=== PATIENT | female | born 1985 | race American Indian/Alaskan Native ===

== ENCOUNTER 2018-04-02 10:14 | Emergency (ER) | payer OTHER ==
[2018-04-02 10:19] VITALS: BP 182/95
[2018-04-02 11:33] LABS: Bilirubin,Urine NEG (Negative); Blood,Urine NEG (Negative); Color,Urine Straw (Yellow); Protein,Urine <15 mg/dL mg/dL (Negative); Urobilinogen,Urine < 2.0 mg/dL (<2.0); WBC,Urine < 1.0 /HPF (0.0-6.0)
[2018-04-02 11:48] LABS: HCG Qualitative,Urine Negative (Negative)
[2018-04-02] MEDS ORDERED: NACL 0.9% 1000 ML 1,000 ML IV ONE (12:13)
[2018-04-02] MEDS ORDERED: MORPHINE IV ONE (12:13)
[2018-04-02] MEDS ORDERED: ZOFRAN IV ONE (12:13)
--- NOTE | 2018-04-02 12:17 | Emergency Department Report ---
ED General Adult HPI - General Chief complaint: Abdominal Pain Stated complaint: STOMACH PAIN Time Seen by Provider: 04/02/18 12:01 Source: patient Mode of arrival: Ambulatory Limitations: No Limitations - History of Present Illness Initial comments: Patient presents to emergency department with acute onset of excruciating abdominal pain with nausea and vomiting that started 2 hours ago. Patient not chest pain, shortness breath, headache. -: Sudden Location: abdomen Radiation: non-radiation Severity scale (0 -10): 9 Quality: sharp Consistency: constant Improves with: none Worsens with: none Associated Symptoms: nausea/vomiting Treatments Prior to Arrival: none - Related Data Previous Rx's Medication Instructions Recorded Last Taken Type HYDROcodone/APAP 5-325 [[place] 1 each PO Q6HR PRN #12 tablet 04/02/18 Unknown Rx 5/325] Ondansetron [Zofran Odt] 4 mg PO Q6H PRN #12 tab.rapdis 04/02/18 Unknown Rx Allergies Allergy/AdvReac Type Severity Reaction Status Date / Time latex Allergy Itching Verified 04/02/18 10:17 ED Review of Systems ROS: Stated complaint: STOMACH PAIN Other details as noted in HPI Comment: All other systems reviewed and negative Constitutional: denies: chills, fever Eyes: denies: eye pain, eye discharge, vision change ENT: denies: ear pain, throat pain Respiratory: denies: cough, shortness of breath, wheezing Cardiovascular: denies: chest pain, palpitations Endocrine: no symptoms reported Gastrointestinal: abdominal pain. denies: nausea, diarrhea Genitourinary: denies: urgency, dysuria, discharge Musculoskeletal: denies: back pain, joint swelling, arthralgia Skin: denies: rash, lesions Neurological: denies: headache, weakness, paresthesias Psychiatric: denies: anxiety, depression Hematological/Lymphatic: denies: easy bleeding, easy bruising ED Past Medical Hx - Past Medical History Previous Medical History?: No - Surgical History Past Surgical History?: No - Social History Smoking Status: Never Smoker Substance Use Type: None - Medications Home Medications: Home Medications Medication Instructions Recorded Confirmed Last Taken Type HYDROcodone/APAP 5-325 [[place] 1 each PO Q6HR PRN #12 tablet 04/02/18 Unknown Rx 5/325] Ondansetron [Zofran Odt] 4 mg PO Q6H PRN #12 tab.rapdis 04/02/18 Unknown Rx ED Physical Exam - General Limitations: No Limitations General appearance: alert, in no apparent distress - Head Head exam: Present: atraumatic, normocephalic - Eye Eye exam: Present: normal appearance, PERRL, EOMI - ENT ENT exam: Present: mucous membranes moist - Neck Neck exam: Present: normal inspection - Respiratory Respiratory exam: Present: normal lung sounds bilaterally. Absent: respiratory distress, wheezes, rales - Cardiovascular Cardiovascular Exam: Present: regular rate, normal rhythm. Absent: systolic murmur, diastolic murmur, rubs, gallop - GI/Abdominal GI/Abdominal exam: Present: soft, tenderness (tenderness to palpation right upper quadrant and right lower quadrant), normal bowel sounds. Absent: distended - Extremities Exam Extremities exam: Present: normal inspection - Back Exam Back exam: Present: normal inspection - Neurological Exam Neurological exam: Present: alert, oriented X3, CN II-XII intact. Absent: motor sensory deficit - Psychiatric Psychiatric exam: Present: normal affect, normal mood - Skin Skin exam: Present: warm, dry, intact, normal color. Absent: rash ED Course Vital Signs 04/02/18 04/02/18 04/02/18 10:17 12:16 12:35 Temperature 97.5 F L Pulse Rate 93 H Respiratory 18 16 17 Rate Blood Pressure 182/95 O2 Sat by Pulse 100 Oximetry ED Medical Decision Making - Lab Data Result diagrams: 04/02/18 12:27 04/02/18 12:27 Lab Results 04/02/18 04/02/18 04/02/18 Range/Units 11:17 12:27 12:27 WBC 5.9 (4.5-11.0) K/mm3 RBC 5.32 H (3.65-5.03) M/mm3 Hgb 13.7 (10.1-14.3) gm/dl Hct 43.4 H (30.3-42.9) % MCV 82 (79-97) fl MCH 26 L (28-32) pg MCHC 32 (30-34) % RDW 14.4 (13.2-15.2) % Plt Count 272 (140-440) K/mm3 Lymph % (Auto) 22.3 (13.4-35.0) % [place] % (Auto) 7.0 (0.0-7.3) % Eos % (Auto) 0.7 (0.0-4.3) % Baso % (Auto) 0.8 (0.0-1.8) % Lymph # 1.3 (1.2-5.4) K/mm3 [place] # 0.4 (0.0-0.8) K/mm3 Eos # 0.0 (0.0-0.4) K/mm3 Baso # 0.0 (0.0-0.1) K/mm3 Seg Neutrophils % 69.2 (40.0-70.0) % Seg Neutrophils # 4.1 (1.8-7.7) K/mm3 Sodium 141 (137-145) mmol/L Potassium 4.8 (3.6-5.0) mmol/L Chloride 106.3 (98-107) mmol/L Carbon Dioxide 24 (22-30) mmol/L Anion Gap 16 mmol/L BUN 11 (7-17) mg/dL Creatinine 0.8 (0.7-1.2) mg/dL Estimated GFR > 60 ml/min BUN/Creatinine Ratio 14 % Glucose 81 (65-100) mg/dL Calcium 9.0 (8.4-10.2) mg/dL Total Bilirubin 0.40 (0.1-1.2) mg/dL AST 20 (5-40) units/L ALT 20 (7-56) units/L Alkaline Phosphatase 73 (35-129) units/L Total Protein 6.8 (6.3-8.2) g/dL Albumin 3.8 L (3.9-5) g/dL Albumin/Globulin Ratio 1.3 % Lipase 17 (13-60) units/L Urine Color Straw (Yellow) Urine Turbidity Clear (Clear) Urine pH 6.0 (5.0-7.0) Ur Specific [place] 1.005 (1.003-1.030) Urine Protein <15 mg/dl (Negative) mg/dL Urine Glucose (UA) Neg (Negative) mg/dL Urine Ketones Neg (Negative) mg/dL Urine Blood Neg (Negative) Urine Nitrite Neg (Negative) Urine Bilirubin Neg (Negative) Urine Urobilinogen < 2.0 (<2.0) mg/dL Ur Leukocyte Esterase Neg (Negative) Urine WBC (Auto) < 1.0 (0.0-6.0) /HPF Urine RBC (Auto) 1.0 (0.0-6.0) /HPF U Epithel Cells (Auto) 1.0 (0-13.0) /HPF Urine HCG, Qual Negative (Negative) - Radiology Data Radiology results: report reviewed Critical care attestation.: If time is entered above; I have spent that time in minutes in the direct care of this critically ill patient, excluding procedure time. ED Disposition Clinical Impression: Ovarian cyst, Cholelithiasis Disposition: TO HOME OR SELFCARE Is pt being admited?: No Does the pt Need Aspirin: No Condition: Stable Instructions: Ovarian Cyst (ED), Biliary Colic (ED), Abdominal Pain (ED) Prescriptions: HYDROcodone/APAP 5-325 [[place] 5/325] 1 each PO Q6HR PRN #12 tablet PRN Reason: Pain Ondansetron [Zofran Odt] 4 mg PO Q6H PRN #12 tab.rapdis PRN Reason: Nausea Referrals: CIARA BECK MD [Primary Care Provider] - 3-5 Days Time of Disposition: 15:18
[2018-04-02 12:43] LABS: Basophils % (Auto) 0.8 % (0.0-1.8); Eosinophils % (Auto) 0.7 % (0.0-4.3); Hematocrit 43.4 % (30.3-42.9); Hemoglobin 13.7 gm/dl (10.1-14.3); Lymphocytes # (Auto) 1.3 K/mm3 (1.2-5.4); Lymphocytes % (Auto) 22.3 % (13.4-35.0); Mean Corpuscular HGB Conc 32 % (30-34); Mean Corpuscular Volume 82 fl (79-97); Monocytes # (Auto) 0.4 K/mm3 (0.0-0.8); Platelet Count 272 K/mm3 (140-440); Red Blood Count 5.32 M/mm3 (3.65-5.03); Red Cell Distribution Width 14.4 % (13.2-15.2)
[2018-04-02 13:07] LABS: Alanine Aminotransferase 20 units/L (7-56); Albumin 3.8 g/dL (3.9-5); BUN/Creatinine Ratio 14; Blood Urea Nitrogen 11 mg/dL (7-17); Hemolysis Index 34
--- NOTE | 2018-04-02 13:39 | Cat Scan Report ---
CT ABDOMEN PELVIS WITHOUT CONTRAST: HISTORY: Right lower quadrant abdominal pain. COMPARISON: none. TECHNIQUE: Helical CT in 1.25mm intervals without IV contrast. Sagittal and coronal reconstructions. FINDINGS: Lung bases: Normal. Liver: Normal. Biliary system: Normal. Pancreas: Normal. Spleen: Normal. Kidneys/ureters/bladder: Normal. Adrenal glands: Normal. Aorta: Normal. Intestines: Normal. Appendix: Normal. Pelvic viscera: A 3.3 x 2.4 cm right ovarian cyst is suspected. The uterus and left adnexa are unremarkable. Ascites: None. Adenopathy: None. Musculoskeletal: Normal. IMPRESSION: 3.3 x 2.4 cm right ovarian cyst.
--- NOTE | 2018-04-02 14:15 | Ultrasound Report ---
FINAL REPORT EXAM: US ABDOMEN COMPLETE HISTORY: abdomen pain/ nausea TECHNIQUE: Grayscale and color doppler ultrasound imaging of the right upper quadrant was performed. PRIORS: None. FINDINGS: Image quality is degraded secondary to patient body habitus. Liver: The liver is normal in echogenicity. No focal hepatic lesions or intrahepatic biliary ductal d ilation. Gallbladder/Biliary system: No cholelithiasis, gallbladder wall thickening or pericholecystic fluid. There may be some sludge within the gallbladder. The common bile duct measures 3.3 millimeters. Right kidney: The right kidney is normal in echogenicity without hydronephrosis, cyst, mass or calcif ication. The right kidney measures 9.4 x 3.8 x 4.7 centimeters. Pancreas: The pancreas was not well seen. Aorta/IVC: The visualized portions of the abdominal aorta were normal in caliber. The visualized port ions of the IVC were normal in caliber. Free fluid: None. IMPRESSION: Possible gallbladder sludge.
[2018-04-02] MEDS ORDERED: NORCO 5/325 ONE (15:30)
[2018-04-02] MEDS ORDERED: NORCO 5/325 PO ONE (17:03)
== END 2018-04-02 15:35 | disposition home or self-care (01) ==
LOC: ED 10:14
DX: N83.209 Unspecified ovarian cyst, unspecified side (principal); K80.20 Calculus of gallbladder without cholecystitis without obstruction
CPT/HCPCS: 36415; 74176; 76705; 80053; 81001; 81025; 83690; 85025; 96361; 96374; 96375; 99284; J2270; J2405; J7030

== ENCOUNTER 2018-04-04 18:11 | Emergency (ER) | payer OTHER ==
--- NOTE | 2018-04-04 18:19 | Emergency Department Report ---
Blank Doc - Documentation Documentation: 32 y.o. female presents with abdominal pain, nausea, and vomiting x 2 days. P atient seen in this ER Sunday and diagnosed with Cholelithiasis with sludge. States General surgeon told her to come in because pain and nausea uncontrolled. cc nausea, vomiting, and sharp abdominal pain Labs ordered Fast Track for evaluation
[2018-04-04 18:41] LABS: Basophils % (Auto) 0.8 % (0.0-1.8); Eosinophils # (Auto) 0.1 K/mm3 (0.0-0.4); Eosinophils % (Auto) 2.3 % (0.0-4.3); Hematocrit 42.8 % (30.3-42.9); Hemoglobin 13.5 gm/dl (10.1-14.3); Lymphocytes % (Auto) 44.6 % (13.4-35.0); Mean Corpuscular HGB Conc 31 % (30-34); Mean Corpuscular Volume 83 fl (79-97); Monocytes # (Auto) 0.5 K/mm3 (0.0-0.8); Monocytes % (Auto) 11.2 % (0.0-7.3); Platelet Count 265 K/mm3 (140-440); Red Blood Count 5.16 M/mm3 (3.65-5.03); Red Cell Distribution Width 14.7 % (13.2-15.2)
[2018-04-04 19:05] LABS: Alanine Aminotransferase 23 units/L (7-56); Albumin 3.7 g/dL (3.9-5); BUN/Creatinine Ratio 10; Blood Urea Nitrogen 10 mg/dL (7-17); Calcium 8.7 mg/dL (8.4-10.2); Hemolysis Index 7
[2018-04-04 19:49] LABS: Bilirubin,Urine NEG (Negative); Blood,Urine NEG (Negative); Color,Urine Yellow (Yellow); Hyaline Casts,Urine 3 /LPF; Mucus,Urine 1+ /HPF; Protein,Urine <15 mg/dL mg/dL (Negative)
--- NOTE | 2018-04-04 20:54 | Emergency Department Report ---
ED Abdominal Pain HPI - General Chief Complaint: Abdominal Pain Stated Complaint: ABD PAIN/WEAK Time Seen by Provider: 04/04/18 18:16 Source: patient Mode of arrival: Ambulatory Limitations: No Limitations - History of Present Illness Initial Comments: Ms. Bella is a 32 yo female who presents with subjective fever nausea vomiting epigastric and periumbilical abdominal pain. Zofran did help her symptoms. She is concerned about the findings on her recent ED visit 2 days ago. No diarrhea. No BM since Sunday. She was referred to ED by general surgeon because she had continued pain and vomiting. She explains she has had pain in 2 different areas. The pain is not in both locations simultaneously. Abdominal ultrasound obtained 2 days ago on Apr 02 on previous ED evaluation revealed possible gallbladder sludge without cholelithiasis without gallbladder wall thickening or pericholecystic fluid CT abdomen and pelvis obtained April 02 revealed 3 cm right ovarian cyst MD Complaint: abdominal pain -: Gradual, days(s) (3) Location: periumbilical, epigastric Radiation: none Severity scale (0 -10): 8 - Related Data Previous Rx's Medication Instructions Recorded Last Taken Type HYDROcodone/APAP 5-325 [[place] 1 each PO Q6HR PRN #12 tablet 04/02/18 Unknown Rx 5/325] Ondansetron [Zofran Odt] 4 mg PO Q6H PRN #12 tab.rapdis 04/02/18 Unknown Rx Allergies Allergy/AdvReac Type Severity Reaction Status Date / Time latex Allergy Itching Verified 04/04/18 18:12 ED Review of Systems ROS: Stated complaint: ABD PAIN/WEAK Other details as noted in HPI Comment: All other systems reviewed and negative Constitutional: fever, malaise Gastrointestinal: abdominal pain, nausea, vomiting, constipation ED Past Medical Hx - Past Medical History Previous Medical History?: Yes Additional medical history: PCOS - Surgical History Past Surgical History?: No - Social History Smoking Status: Never Smoker Substance Use Type: None - Medications Home Medications: Home Medications Medication Instructions Recorded Confirmed Last Taken Type HYDROcodone/APAP 5-325 [[place] 1 each PO Q6HR PRN #12 tablet 04/02/18 Unknown Rx 5/325] Ondansetron [Zofran Odt] 4 mg PO Q6H PRN #12 tab.rapdis 04/02/18 Unknown Rx ED Physical Exam - General Limitations: No Limitations General appearance: alert, in no apparent distress - Head Head exam: Present: atraumatic, normocephalic - Eye Eye exam: Present: normal appearance - ENT ENT exam: Present: mucous membranes moist - Neck Neck exam: Present: normal inspection, full ROM - Respiratory Respiratory exam: Present: normal lung sounds bilaterally. Absent: respiratory distress, wheezes, rales, rhonchi - Cardiovascular Cardiovascular Exam: Present: regular rate, normal rhythm, normal heart sounds. Absent: systolic murmur, diastolic murmur, rubs, gallop - GI/Abdominal GI/Abdominal exam: Present: soft, normal bowel sounds. Absent: distended, tenderness, guarding, rebound - Extremities Exam Extremities exam: Present: normal inspection - Back Exam Back exam: Present: normal inspection - Neurological Exam Neurological exam: Present: alert, oriented X3 - Psychiatric Psychiatric exam: Present: normal affect, normal mood - Skin Skin exam: Present: warm, dry, intact, normal color. Absent: rash ED Course Vital Signs 04/04/18 04/04/18 18:17 20:16 Temperature 97.6 F 97.5 F L Pulse Rate 79 71 Respiratory 18 18 Rate Blood Pressure 177/83 Blood Pressure 138/69 [Left] O2 Sat by Pulse 96 100 Oximetry ED Medical Decision Making - Lab Data Result diagrams: 04/04/18 18:30 04/04/18 18:30 Laboratory Results - last 24 hr 04/04/18 04/04/18 04/04/18 18:30 18:30 Unknown WBC 4.4 L RBC 5.16 H Hgb 13.5 Hct 42.8 MCV 83 MCH 26 L MCHC 31 RDW 14.7 Plt Count 265 Lymph % (Auto) 44.6 H [place] % (Auto) 11.2 H Eos % (Auto) 2.3 Baso % (Auto) 0.8 Lymph # 2.0 [place] # 0.5 Eos # 0.1 Baso # 0.0 Seg Neutrophils % 41.1 Seg Neutrophils # 1.8 Sodium 141 Potassium 4.0 Chloride 104.2 Carbon Dioxide 26 Anion Gap 15 BUN 10 Creatinine 1.0 Estimated GFR > 60 BUN/Creatinine Ratio 10 Glucose 87 Calcium 8.7 Total Bilirubin 0.30 AST 23 ALT 23 Alkaline Phosphatase 67 Total Protein 7.0 Albumin 3.7 L Albumin/Globulin Ratio 1.1 Lipase 15 Urine Color Yellow Urine Turbidity Clear Urine pH 5.0 Ur Specific [place] 1.026 Urine Protein <15 mg/dl Urine Glucose (UA) Neg Urine Ketones 20 Urine Blood Neg Urine Nitrite Neg Urine Bilirubin Neg Urine Urobilinogen 2.0 Ur Leukocyte Esterase Neg Urine WBC (Auto) 4.0 Urine RBC (Auto) 4.0 U Epithel Cells (Auto) 3.0 Hyaline Casts 3 Urine Mucus 1+ - Medical Decision Making Ms. Bella presents with 2 days of abdominal pain nausea and vomiting. I reviewed US and CT findings as reported in HPI. I suspect viral enteritis as cause of migrating pain. I suspect gallbladder slugdge and ovarian cyst are incidental findings. No evidence of peritonitis. No evidence of appendicitis, cholecystitis, ovarian torsion or . White blood cell count actually decreased from 5.9 to 4.4 over 2 days. She appears well without abdominal tenderness. I encouraged her to continue clear liquid diet. Encouraged her to rest and hydrate. She understands return precautions. Critical care attestation.: If time is entered above; I have spent that time in minutes in the direct care of this critically ill patient, excluding procedure time. ED Disposition Clinical Impression: Stomach flu Disposition: DC-01 TO HOME OR SELFCARE Is pt being admited?: No Does the pt Need Aspirin: No Condition: Stable Instructions: Abdominal Pain (ED) Referrals: CARLYLE ALEXIS DO [Primary Care Provider] - 3-5 Days Forms: Work/School Release Form(ED)
[2018-04-04] MEDS ORDERED: ZOFRAN ODT PO ONE (20:56)
[2018-04-04 21:24] VITALS: BP 128/67
== END 2018-04-04 21:30 | disposition home or self-care (01) ==
LOC: ED 18:11
DX: A08.4 Viral intestinal infection, unspecified (principal); Z91.040 Latex allergy status
CPT/HCPCS: 36415; 80053; 81001; 83690; 85025; 99283; Q0162

== ENCOUNTER 2018-07-15 11:00 | Outpatient (CLI) | payer OTHER | END 2018-07-15 11:01 | disposition home or self-care (01) | LOC: SLR 11:00 | PROVIDERS: ATTEND Specialist | DX: G47.33 Obstructive sleep apnea (adult) (pediatric) (principal); R40.0 Somnolence; R06.83 Snoring; E66.9 Obesity, unspecified | CPT/HCPCS: G0399 ==

== ENCOUNTER 2019-03-20 10:15 | Emergency (ER) | payer OTHER ==
[2019-03-20 11:45] LABS: Basophils # (Auto) 0.1 K/mm3 (0.0-0.1); Basophils % (Auto) 1.4 % (0.0-1.8); Eosinophils # (Auto) 0.1 K/mm3 (0.0-0.4); Eosinophils % (Auto) 1.9 % (0.0-4.3); Hematocrit 37.4 % (30.3-42.9); Hemoglobin 11.6 gm/dl (10.1-14.3); Lymphocytes % (Auto) 33.5 % (13.4-35.0); Mean Corpuscular HGB Conc 31 % (30-34); Mean Corpuscular Volume 76 fl (79-97); Monocytes # (Auto) 0.6 K/mm3 (0.0-0.8); Monocytes % (Auto) 9.6 % (0.0-7.3); Platelet Count 309 K/mm3 (140-440); Red Blood Count 4.89 M/mm3 (3.65-5.03); Red Cell Distribution Width 16.1 % (13.2-15.2)
[2019-03-20 12:12] LABS: Alanine Aminotransferase 16 units/L (7-56); Albumin 3.8 g/dL (3.9-5); BUN/Creatinine Ratio 16; Blood Urea Nitrogen 13 mg/dL (7-17); Calcium 9.2 mg/dL (8.4-10.2); Hemolysis Index 1
[2019-03-20 12:27] VITALS: BP 154/99
[2019-03-20] MEDS ORDERED: HYDROcodone/ACETAMINOPHEN 5-325 MG TAB PO ONE (12:53)
--- NOTE | 2019-03-20 12:56 | Emergency Department Report ---
ED Abdominal Pain HPI - General Chief Complaint: Abdominal Pain Stated Complaint: WEAK, STOMACH PAIN Time Seen by Provider: 03/20/19 12:24 Source: patient Mode of arrival: Ambulatory Limitations: No Limitations - History of Present Illness Initial Comments: This 33-year-old female who states that she's had abdominal pain in the right lower quadrant of her abdomen for over a week. She denies fever or chills. She's been having normal bowel movements. He stated that she vomited once this morning but has no ongoing nausea. She states that she had removal of ovarian cysts in December and has had similar lower quadrant pain in the past. The pain is intermittent and dull. Does not radiate. MD Complaint: abdominal pain -: Gradual, week(s) Location: RLQ Radiation: none Migration to: no migration Severity: moderate Quality: aching Consistency: intermittent Improves With: nothing Worsens With: nothing Associated Symptoms: denies other symptoms, vomiting (times one) - Related Data Previous Rx's Medication Instructions Recorded Last Taken Type Cyclobenzaprine [Flexeril] 10 mg PO TID PRN #10 tablet 11/19/18 Unknown Rx Ibuprofen [Motrin] 800 mg PO Q8HR PRN #30 tablet 11/19/18 Unknown Rx Ferrous Gluconate [Ferrous 324 mg PO BID #20 tablet 03/20/19 Unknown Rx Gluconate 324 MG] traMADoL [Ultram 50 MG tab] 50 mg PO Q6HR PRN #10 tablet 03/20/19 Unknown Rx Allergies Allergy/AdvReac Type Severity Reaction Status Date / Time latex Allergy Itching Verified 11/19/18 10:40 ED Review of Systems ROS: Stated complaint: WEAK, STOMACH PAIN Other details as noted in HPI Constitutional: denies: chills, fever Eyes: denies: eye pain, eye discharge, vision change ENT: denies: ear pain, throat pain Respiratory: denies: cough, shortness of breath, wheezing Cardiovascular: denies: chest pain, palpitations Endocrine: no symptoms reported Gastrointestinal: abdominal pain, vomiting. denies: nausea, diarrhea Genitourinary: denies: urgency, dysuria, discharge Musculoskeletal: denies: back pain, joint swelling, arthralgia Skin: denies: rash, lesions Neurological: denies: headache, weakness, paresthesias Psychiatric: denies: anxiety, depression Hematological/Lymphatic: denies: easy bleeding, easy bruising ED Past Medical Hx - Past Medical History Previous Medical History?: Yes Additional medical history: PCOS- VASILE, NOT ON CPAP - Surgical History Past Surgical History?: Yes Additional Surgical History: 2 ovarian cyst removed 2018 - Social History Smoking Status: Never Smoker - Medications Home Medications: Home Medications Medication Instructions Recorded Confirmed Last Taken Type Cyclobenzaprine [Flexeril] 10 mg PO TID PRN #10 tablet 11/19/18 Unknown Rx Ibuprofen [Motrin] 800 mg PO Q8HR PRN #30 tablet 11/19/18 Unknown Rx Ferrous Gluconate [Ferrous 324 mg PO BID #20 tablet 03/20/19 Unknown Rx Gluconate 324 MG] traMADoL [Ultram 50 MG tab] 50 mg PO Q6HR PRN #10 tablet 03/20/19 Unknown Rx ED Physical Exam - General Limitations: No Limitations General appearance: alert, in no apparent distress, obese - Head Head exam: Present: atraumatic, normocephalic - Eye Eye exam: Present: normal appearance. Absent: scleral icterus - ENT ENT exam: Present: mucous membranes moist - Neck Neck exam: Present: normal inspection - Respiratory Respiratory exam: Present: normal lung sounds bilaterally. Absent: respiratory distress - Cardiovascular Cardiovascular Exam: Present: regular rate, normal rhythm. Absent: systolic murmur, diastolic murmur, rubs, gallop - GI/Abdominal GI/Abdominal exam: Present: soft, normal bowel sounds. Absent: distended, tenderness, guarding, rebound, rigid - Extremities Exam Extremities exam: Present: normal inspection - Back Exam Back exam: Present: normal inspection - Neurological Exam Neurological exam: Present: alert, oriented X3, CN II-XII intact. Absent: motor sensory deficit - Psychiatric Psychiatric exam: Present: normal affect, normal mood - Skin Skin exam: Present: warm, dry, intact, normal color. Absent: rash ED Course Vital Signs 03/20/19 03/20/19 10:20 12:25 Temperature 97.6 F Pulse Rate 91 H 92 H Respiratory 16 18 Rate Blood Pressure 152/99 Blood Pressure 154/99 [Left] O2 Sat by Pulse 99 100 Oximetry - Reevaluation(s) Reevaluation #1: On reexamination the patient is resting comfortably. She no longer complaints of abdominal pain. Ultrasound test was normal. Urine was negative. She is appropriate for outpatient follow-up. She does have indications of iron deficiency anemia. I'll place her on empiric iron. 03/20/19 14:29 ED Medical Decision Making - Lab Data Result diagrams: 03/20/19 11:26 03/20/19 11:26 Laboratory Results - last 24 hr 03/20/19 03/20/19 03/20/19 11:26 11:26 11:26 WBC 5.9 RBC 4.89 Hgb 11.6 Hct 37.4 MCV 76 L MCH 24 L MCHC 31 RDW 16.1 H Plt Count 309 Lymph % (Auto) 33.5 [place] % (Auto) 9.6 H Eos % (Auto) 1.9 Baso % (Auto) 1.4 Lymph # 2.0 [place] # 0.6 Eos # 0.1 Baso # 0.1 Seg Neutrophils % 53.6 Seg Neutrophils # 3.2 Sodium 142 Potassium 4.4 Chloride 105.8 Carbon Dioxide 23 Anion Gap 18 BUN 13 Creatinine 0.8 Estimated GFR > 60 BUN/Creatinine Ratio 16 Glucose 104 H Calcium 9.2 Total Bilirubin 0.40 AST 19 ALT 16 Alkaline Phosphatase 83 Total Protein 7.3 Albumin 3.8 L Albumin/Globulin Ratio 1.1 HCG, Qual Negative Laboratory Results - last 24 hr 03/20/19 03/20/19 03/20/19 11:26 11:26 11:26 WBC 5.9 RBC 4.89 Hgb 11.6 Hct 37.4 MCV 76 L MCH 24 L MCHC 31 RDW 16.1 H Plt Count 309 Lymph % (Auto) 33.5 [place] % (Auto) 9.6 H Eos % (Auto) 1.9 Baso % (Auto) 1.4 Lymph # 2.0 [place] # 0.6 Eos # 0.1 Baso # 0.1 Seg Neutrophils % 53.6 Seg Neutrophils # 3.2 Sodium 142 Potassium 4.4 Chloride 105.8 Carbon Dioxide 23 Anion Gap 18 BUN 13 Creatinine 0.8 Estimated GFR > 60 BUN/Creatinine Ratio 16 Glucose 104 H Calcium 9.2 Total Bilirubin 0.40 AST 19 ALT 16 Alkaline Phosphatase 83 Total Protein 7.3 Albumin 3.8 L Albumin/Globulin Ratio 1.1 HCG, Qual Negative Laboratory Results - last 24 hr 03/20/19 03/20/19 03/20/19 11:26 11:26 11:26 WBC 5.9 RBC 4.89 Hgb 11.6 Hct 37.4 MCV 76 L MCH 24 L MCHC 31 RDW 16.1 H Plt Count 309 Lymph % (Auto) 33.5 [place] % (Auto) 9.6 H Eos % (Auto) 1.9 Baso % (Auto) 1.4 Lymph # 2.0 [place] # 0.6 Eos # 0.1 Baso # 0.1 Seg Neutrophils % 53.6 Seg Neutrophils # 3.2 Sodium 142 Potassium 4.4 Chloride 105.8 Carbon Dioxide 23 Anion Gap 18 BUN 13 Creatinine 0.8 Estimated GFR > 60 BUN/Creatinine Ratio 16 Glucose 104 H Calcium 9.2 Total Bilirubin 0.40 AST 19 ALT 16 Alkaline Phosphatase 83 Total Protein 7.3 Albumin 3.8 L Albumin/Globulin Ratio 1.1 HCG, Qual Negative Urine Color Urine Turbidity Urine pH Ur Specific [place] Urine Protein Urine Glucose (UA) Urine Ketones Urine Blood Urine Nitrite Urine Bilirubin Urine Urobilinogen Ur Leukocyte Esterase Urine WBC (Auto) Urine RBC (Auto) U Epithel Cells (Auto) Urine Mucus 03/20/19 12:32 WBC RBC Hgb Hct MCV MCH MCHC RDW Plt Count Lymph % (Auto) [place] % (Auto) Eos % (Auto) Baso % (Auto) Lymph # [place] # Eos # Baso # Seg Neutrophils % Seg Neutrophils # Sodium Potassium Chloride Carbon Dioxide Anion Gap BUN Creatinine Estimated GFR BUN/Creatinine Ratio Glucose Calcium Total Bilirubin AST ALT Alkaline Phosphatase Total Protein Albumin Albumin/Globulin Ratio HCG, Qual Urine Color Yellow Urine Turbidity Clear Urine pH 7.0 Ur Specific [place] 1.016 Urine Protein <15 mg/dl Urine Glucose (UA) Neg Urine Ketones Neg Urine Blood Neg Urine Nitrite Neg Urine Bilirubin Neg Urine Urobilinogen < 2.0 Ur Leukocyte Esterase Neg Urine WBC (Auto) < 1.0 Urine RBC (Auto) < 1.0 U Epithel Cells (Auto) 1.0 Urine Mucus Few - Radiology Data Radiology results: report reviewed (ultrasound negative) Critical care attestation.: If time is entered above; I have spent that time in minutes in the direct care of this critically ill patient, excluding procedure time. 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 Return any acute change or worsening abdominal discomfort as needed. Prescriptions: Ferrous Gluconate [Ferrous Gluconate 324 MG] 324 mg PO BID #20 tablet traMADoL [Ultram 50 MG tab] 50 mg PO Q6HR PRN #10 tablet PRN Reason: Pain Referrals: PRIMARY CARE, [Primary Care Provider] - 3-5 Days [facility] [Provider Group] - 2-3 Days Time of Disposition: 14:32
--- NOTE | 2019-03-20 13:53 | Ultrasound Report ---
ULTRASOUND PELVIS INDICATION: Right upper quadrant pain. History of ovarian cystectomy in December 2018. TECHNIQUE: Transabdominal and Transvaginal. Duplex Color Doppler used: Yes. COMPARISON: CT abdomen and pelvis without contrast from 04/02/2018. FINDINGS: Uterus: Present. Size: 7.3 x 3.3 x 4.2 cm. Endometrial complex: Normal measuring 0.7 cm. Mass lesions: None. Additional findings: None. Right Ovary: Size: 2.8 x 2.3 x 2.5 cm Blood flow: Normal. Cyst or mass: A dominant follicle measures 2.1 x 2.0 cm. No other solid or cystic lesions. Left Ovary: Size: 2.4 x 1.2 x 1.8 cm Blood flow: Normal. Cyst or mass: None. Urinary Bladder: Normal. Free Fluid: None. Additional Findings: None. IMPRESSION: 1. No acute sonographic abnormality of the pelvis. Signer Name: Fly Russell MD Signed: 03/20/2019 1:49 PM Workstation Name: [id number]
[2019-03-20 14:00] LABS: Bilirubin,Urine NEG (Negative); Blood,Urine NEG (Negative); Color,Urine Yellow (Yellow); Mucus,Urine FEW /HPF; Protein,Urine <15 mg/dL mg/dL (Negative); RBC,Urine < 1.0 /HPF (0.0-6.0); Urobilinogen,Urine < 2.0 mg/dL (<2.0); WBC,Urine < 1.0 /HPF (0.0-6.0)
== END 2019-03-20 15:33 | disposition home or self-care (01) ==
LOC: ED 10:15
DX: D50.9 Iron deficiency anemia, unspecified (principal); R10.31 Right lower quadrant pain; E28.2 Polycystic ovarian syndrome; R11.10 Vomiting, unspecified; Z91.040 Latex allergy status; Z79.899 Other long term (current) drug therapy
CPT/HCPCS: 36415; 76830; 76856; 80053; 81001; 84703; 85025